=== PATIENT | male | born 1950 | race Caucasian/White ===

== ENCOUNTER 2018-10-05 11:58 | Observation (INO) ==
[2018-10-05 13:57] LABS: Apearance,Urine CLEAR (Clear); Bilirubin,Urine Negative (Negative); Blood, Urine Negative (Negative); Glucose,Urine (UA) Negative (Negative); Ketones,Urine Negative (Negative); Nitrite,Urine Negative (Negative); Protein,Urine Negative; Urine Color Straw (Yellow); Urine Specific Gravity 1.003 (1.001-1.035); Urine Urobilinogen < 2.0 EU/DL (0.2-1.0)
[2018-10-05 14:11] LABS: Basophils # 0.1 10*3/uL (0.0-0.2); Basophils % 0.8 % (0.0-0.8); Eosinophils # 0.3 10*3/uL (0.0-0.87); Eosinophils % 3.6 % (0.00-10.9); Hematocrit 49.1 VOL% (42.0-52.0); Hemoglobin 15.9 GM/DL (14.0-18.0); Immature Granulocytes % 0.3 %; Immature Granulocytes Absolute 0.02 #; Lymphocytes # 2.7 10*3/uL (1.4-4.0); Lymphocytes % 34.3 % (21.2-54.2); Mean Corpuscular HGB Conc 32.4 GM/DL (32-36); Mean Corpuscular Volume 93.7 FL (87-102); Mean Platelet Volume 9.5 FL (9.6-12.0); Monocytes % 5.8 % (1.7-12.7); Neutrophils % 55.2 % (38.7-73.9); Platelet Count 176 T/CUMM (130-400); Red Blood Count 5.24 MC/CUMM (3.8-5.5); Red Cell Distribution Width 13.6 % (9.3-17.3)
[2018-10-05 14:17] LABS: INR 0.9; PT Patient Result 10.3 SECS
[2018-10-05 14:33] LABS: Albumin 3.8 G/DL (3.4-5.0); Bilirubin,Total 0.5 MG/DL (0.2-1.0); CKMB % 3.2 %; Calcium 9.4 MG/DL (8.5-10.1); Osmolality,Calculated 275.5 MOS/KG (273-304); Total Protein 7.5 G/DL (6.4-8.3); Troponin I 0.041 NG/ML (0.00-0.045)
[2018-10-05] MEDS ORDERED: traZODone 50 MG TABLET PO PRN (15:42)
[2018-10-05] MEDS ORDERED: ACETAMINOPHEN 325 MG TABLET PO PRN (15:42)
[2018-10-05] MEDS ORDERED: ONDANSETRON 4 MG/2 ML VIAL IV PRN (15:42)
[2018-10-05] MEDS ORDERED: PROMETHAZINE 25 MG/1 ML VIAL IM PRN (15:42)
[2018-10-05] MEDS ORDERED: ALBUTEROL 2.5 MG/3 ML NEB RESP TX PRN (15:45)
[2018-10-05] MEDS ORDERED: traMADol 50 MG TABLET PO PRN (15:45)
[2018-10-05] MEDS ORDERED: BENZONATATE 100 MG CAPSULE PO PRN (15:45)
[2018-10-05] MEDS ORDERED: ENOXAPARIN 40 MG/0.4 ML SYRINGE SUBCUT SCH (16:00)
[2018-10-05] MEDS: PANTOPRAZOLE 40 MG TABLET PO SCH (16:05)
[2018-10-05] MEDS: FUROSEMIDE 40 MG/4 ML VIAL IV SCH (16:14)
[2018-10-05] MEDS: ALBUTEROL/IPRATROPIUM 3 ML NEB RESP TX SCH (19:37)
[2018-10-05] MEDS: GABAPENTIN 300 MG CAPSULE PO SCH (20:16)
[2018-10-05] MEDS: METOPROLOL SUCCINATE XL 100 MG TABLET PO SCH (20:16)
[2018-10-05] MEDS ORDERED: GABAPENTIN 600 MG TABLET PO SCH (21:00)
[2018-10-06 07:26] LABS: Basophils # 0.1 10*3/uL (0.0-0.2); Basophils % 0.9 % (0.0-0.8); Eosinophils # 0.3 10*3/uL (0.0-0.87); Eosinophils % 3.5 % (0.00-10.9); Hematocrit 48.8 VOL% (42.0-52.0); Hemoglobin 16.3 GM/DL (14.0-18.0); Immature Granulocytes % 0.3 %; Immature Granulocytes Absolute 0.02 #; Lymphocytes % 37.9 % (21.2-54.2); Mean Corpuscular HGB Conc 33.4 GM/DL (32-36); Mean Corpuscular Volume 91.7 FL (87-102); Mean Platelet Volume 10.5 FL (9.6-12.0); Monocytes % 6.3 % (1.7-12.7); Neutrophils % 51.1 % (38.7-73.9); Platelet Count 198 T/CUMM (130-400); Red Blood Count 5.32 MC/CUMM (3.8-5.5); Red Cell Distribution Width 13.9 % (9.3-17.3); White Blood Count 7.8 T/CUMM (4-12)
[2018-10-06] MEDS: ALBUTEROL/IPRATROPIUM 3 ML NEB RESP TX SCH ×3 (07:45→14:35)
[2018-10-06 08:14] LABS: Albumin 3.8 G/DL (3.4-5.0); Calcium 9.4 MG/DL (8.5-10.1); Osmolality,Calculated 278.4 MOS/KG (273-304); Risk Ratio 3.15; Total Protein 7.4 G/DL (6.4-8.3); VLDL CHOLESTEROL 22.4 MG/DL
[2018-10-06] MEDS: METOPROLOL SUCCINATE XL 100 MG TABLET PO SCH (08:58)
[2018-10-06] MEDS: FUROSEMIDE 40 MG/4 ML VIAL IV SCH (08:58)
[2018-10-06] MEDS: GABAPENTIN 300 MG CAPSULE PO SCH (08:59)
[2018-10-06] MEDS ORDERED: CALCIUM (CARBONATE) 600 MG TABLET PO SCH (09:00)
[2018-10-06] MEDS ORDERED: LISINOPRIL 20 MG TABLET PO SCH (09:00)
[2018-10-06] MEDS ORDERED: CHOLECALCIFEROL 1,000 UNIT TABLET PO SCH (09:00)
[2018-10-06] MEDS ORDERED: MONTELUKAST 10 MG TABLET PO SCH (09:00)
[2018-10-06] MEDS ORDERED: ASPIRIN EC 81 MG TABLET PO SCH (09:00)
[2018-10-06] MEDS: PANTOPRAZOLE 40 MG TABLET PO SCH (09:01)
[2018-10-06 12:06] VITALS: BP 89/63
[2018-10-06 14:09] LABS: Troponin I 0.037 NG/ML (0.00-0.045)
[2018-10-06] MEDS ORDERED: ENOXAPARIN 80 MG/0.8 ML SYRINGE SUBCUT SCH (15:00)
[2018-10-06 16:10] LABS: Troponin I 0.031 NG/ML (0.00-0.045)
[2018-10-06] MEDS ORDERED: SIMVASTATIN 20 MG TABLET PO SCH (21:00)
== END 2018-10-06 15:58 | disposition home health service (06) ==
LOC: N.EDINP 11:58 → N.ED 11:58 → SUATTDRO 15:42 → N.EDINP 16:52 → N.2E 17:06
PROVIDERS: ADMIT Internal Medicine Nephrology; ATTEND Family Medicine

== ENCOUNTER 2018-12-08 15:24 | Inpatient (IN) ==
[2018-12-08] MEDS ORDERED: ENOXAPARIN 100 MG/ML SYRINGE SUBCUT STA (16:07)
[2018-12-08] MEDS ORDERED: ASPIRIN 325 MG TABLET PO STA (16:07)
[2018-12-08] MEDS ORDERED: ALBUTEROL/IPRATROPIUM 3 ML NEB RESP TX STA (16:07)
[2018-12-08] MEDS ORDERED: ENOXAPARIN 80 MG/0.8 ML SYRINGE SUBCUT ONE (16:14)
[2018-12-08 16:37] LABS: Basophils # 0.1 10*3/uL (0.0-0.2); Basophils % 0.9 % (0.0-0.8); Eosinophils # 0.2 10*3/uL (0.0-0.87); Eosinophils % 2.7 % (0.00-10.9); Hematocrit 45.6 VOL% (42.0-52.0); Immature Granulocytes % 0.4 %; Immature Granulocytes Absolute 0.03 #; Lymphocytes # 2.8 10*3/uL (1.4-4.0); Mean Corpuscular HGB Conc 32.9 GM/DL (32-36); Mean Corpuscular Volume 92.1 FL (87-102); Mean Platelet Volume 9.7 FL (9.6-12.0); Monocytes % 5.2 % (1.7-12.7); NRBC # 0.02 10*3/uL; Neutrophils % 55.8 % (38.7-73.9); Platelet Count 167 T/CUMM (130-400); Red Blood Count 4.95 MC/CUMM (3.8-5.5); Red Cell Distribution Width 13.8 % (9.3-17.3); White Blood Count 7.9 T/CUMM (4-12)
[2018-12-08 17:05] LABS: Albumin 3.7 G/DL (3.4-5.0); Bilirubin,Total 0.4 MG/DL (0.2-1.0); Calcium 8.8 MG/DL (8.5-10.1); Osmolality,Calculated 282.1 MOS/KG (273-304)
[2018-12-08] MEDS ORDERED: MORPHINE 4 MG/1 ML VIAL IV PRN (19:59)
[2018-12-08] MEDS ORDERED: ACETAMINOPHEN 325 MG TABLET PO PRN (19:59)
[2018-12-08] MEDS ORDERED: ONDANSETRON 4 MG/2 ML VIAL IV PRN (19:59)
[2018-12-08] MEDS ORDERED: DOCUSATE SODIUM 100 MG CAPSULE PO PRN (19:59)
[2018-12-08] MEDS ORDERED: ALBUTEROL/IPRATROPIUM 3 ML NEB RESP TX PRN (20:03)
[2018-12-08] MEDS ORDERED: ALBUTEROL 2.5 MG/3 ML NEB RESP TX PRN (20:05)
[2018-12-08] MEDS ORDERED: traMADol 50 MG TABLET PO PRN (20:05)
[2018-12-08] MEDS ORDERED: BENZONATATE 100 MG CAPSULE PO PRN (20:05)
[2018-12-08] MEDS ORDERED: NICOTINE 21 MG/24 HR PATCH TRANSDERM PRN (20:37)
[2018-12-08 23:16] LABS: Apearance,Urine CLEAR (Clear); Bilirubin,Urine Negative (Negative); Blood, Urine Negative (Negative); Glucose,Urine (UA) Negative (Negative); Ketones,Urine Negative (Negative); Nitrite,Urine Negative (Negative); Protein,Urine Negative; RBC,Urine 2 /HPF (0-4); Urine Color Yellow (Yellow); Urine Specific Gravity 1.011 (1.001-1.035); Urine Urobilinogen < 2.0 EU/DL (0.2-1.0); WBC,Urine 2 /HPF (0-6)
[2018-12-09] MEDS: GABAPENTIN 600 MG TABLET PO SCH ×3 (00:20→22:10)
[2018-12-09] MEDS: LEVOFLOXACIN INJ 750 MG in PREMIX 1 EACH IV SCH ×2 (00:20→22:55)
[2018-12-09] MEDS: METOPROLOL SUCCINATE XL 100 MG TABLET PO SCH ×3 (00:20→23:00)
[2018-12-09 00:55] LABS: Basophils # 0.1 10*3/uL (0.0-0.2); Basophils % 0.6 % (0.0-0.8); Eosinophils # 0.2 10*3/uL (0.0-0.87); Eosinophils % 2.1 % (0.00-10.9); Hematocrit 47.2 VOL% (42.0-52.0); Hemoglobin 15.3 GM/DL (14.0-18.0); Immature Granulocytes % 0.4 %; Immature Granulocytes Absolute 0.03 #; Lymphocytes # 2.6 10*3/uL (1.4-4.0); Lymphocytes % 32.9 % (21.2-54.2); Mean Corpuscular HGB Conc 32.4 GM/DL (32-36); Mean Corpuscular Volume 92.9 FL (87-102); Monocytes % 3.5 % (1.7-12.7); Neutrophils % 60.5 % (38.7-73.9); Platelet Count 155 T/CUMM (130-400); Red Blood Count 5.08 MC/CUMM (3.8-5.5); Red Cell Distribution Width 13.6 % (9.3-17.3); White Blood Count 7.8 T/CUMM (4-12)
[2018-12-09 01:22] LABS: Albumin 3.6 G/DL (3.4-5.0); Bilirubin,Total 0.6 MG/DL (0.2-1.0); Calcium 9.1 MG/DL (8.5-10.1); Osmolality,Calculated 283.3 MOS/KG (273-304); Risk Ratio 2.65
[2018-12-09 01:27] LABS: Troponin I 0.048 NG/ML (0.00-0.045)
[2018-12-09] MEDS: ALBUTEROL/IPRATROPIUM 3 ML NEB RESP TX SCH ×4 (07:52→19:45)
[2018-12-09] MEDS ORDERED: LISINOPRIL 20 MG TABLET PO SCH (09:00)
[2018-12-09] MEDS ORDERED: SIMVASTATIN 20 MG TABLET PO SCH (09:00)
[2018-12-09] MEDS ORDERED: MONTELUKAST 10 MG TABLET PO SCH (09:00)
[2018-12-09] MEDS: CALCIUM (CARBONATE) 600 MG TABLET PO SCH (09:45)
[2018-12-09] MEDS: CHOLECALCIFEROL 1,000 UNIT TABLET PO SCH (09:47)
[2018-12-09] MEDS: predniSONE 20 MG TABLET PO SCH (09:48)
[2018-12-09] MEDS: FUROSEMIDE 40 MG TABLET PO SCH (09:49)
[2018-12-09] MEDS: ASPIRIN CHEW 81 MG TABLET PO SCH (09:49)
[2018-12-09] MEDS: PANTOPRAZOLE 40 MG TABLET PO SCH (09:49)
[2018-12-09] MEDS ORDERED: AMINOPHYLLINE 250 MG in SODIUM CHLORIDE 0.9% 100 ML IV ONE (10:27)
[2018-12-09] MEDS ORDERED: AMINOPHYLLINE 500 MG in SODIUM CHLORIDE 0.9% 480 ML IV SCH (14:51)
[2018-12-09] MEDS ORDERED: ENOXAPARIN 40 MG/0.4 ML SYRINGE SUBCUT SCH (21:00)
[2018-12-09] MEDS: MONTELUKAST 10 MG TABLET PO SCH (22:57)
[2018-12-10 05:06] LABS: Basophils % 0.3 % (0.0-0.8); Eosinophils # 0.1 10*3/uL (0.0-0.87); Eosinophils % 0.6 % (0.00-10.9); Hematocrit 43.2 VOL% (42.0-52.0); Hemoglobin 14.5 GM/DL (14.0-18.0); Immature Granulocytes % 0.2 %; Immature Granulocytes Absolute 0.02 #; Lymphocytes # 2.4 10*3/uL (1.4-4.0); Lymphocytes % 27.1 % (21.2-54.2); Mean Corpuscular HGB Conc 33.6 GM/DL (32-36); Mean Corpuscular Volume 91.3 FL (87-102); Mean Platelet Volume 10.7 FL (9.6-12.0); Monocytes % 6.6 % (1.7-12.7); Neutrophils % 65.2 % (38.7-73.9); Platelet Count 155 T/CUMM (130-400); Red Blood Count 4.73 MC/CUMM (3.8-5.5); Red Cell Distribution Width 13.8 % (9.3-17.3); White Blood Count 8.8 T/CUMM (4-12)
[2018-12-10 05:32] LABS: Calcium 9.4 MG/DL (8.5-10.1); Osmolality,Calculated 287.8 MOS/KG (273-304)
[2018-12-10] MEDS: ALBUTEROL/IPRATROPIUM 3 ML NEB RESP TX SCH ×2 (07:36→11:58)
[2018-12-10] MEDS: GABAPENTIN 600 MG TABLET PO SCH (09:22)
[2018-12-10] MEDS: CHOLECALCIFEROL 1,000 UNIT TABLET PO SCH (09:23)
[2018-12-10] MEDS: METOPROLOL SUCCINATE XL 100 MG TABLET PO SCH (09:23)
[2018-12-10] MEDS: CALCIUM (CARBONATE) 600 MG TABLET PO SCH (09:23)
[2018-12-10] MEDS: predniSONE 20 MG TABLET PO SCH (09:25)
[2018-12-10] MEDS: MONTELUKAST 10 MG TABLET PO SCH (09:25)
[2018-12-10] MEDS: ASPIRIN CHEW 81 MG TABLET PO SCH (09:25)
[2018-12-10] MEDS: FUROSEMIDE 40 MG TABLET PO SCH (09:25)
[2018-12-10] MEDS: PANTOPRAZOLE 40 MG TABLET PO SCH (09:26)
[2018-12-10] MEDS ORDERED: THEOPHYLLINE ER 200 MG TABLET PO SCH (09:40)
[2018-12-10] MEDS ORDERED: THEOPHYLLINE ER (24 HR) 400 MG CAPSULE PO SCH (10:00)
[2018-12-10 12:16] VITALS: BP 116/71
[2018-12-10] MEDS ORDERED: ALBUTEROL 2 MG TABLET PO SCH (15:00)
[2018-12-10] MEDS ORDERED: SIMVASTATIN 40 MG TABLET PO SCH (21:00)
== END 2018-12-10 13:41 | disposition home health service (06) | DRG 191 ==
LOC: N.ED 15:24 → N.EDINP 19:59 → N.TELES 21:00
PROVIDERS: ADMIT Internal Medicine; ATTEND Internal Medicine